=== PATIENT | male | born 1980 | race Caucasian/White ===

== ENCOUNTER 2019-02-27 11:23 | Inpatient (IN) ==
[~2019-02-27 11:23] MED LIST: ATIVAN IM ONE; BENADRYL IM ONE; GEODON IM ONE; STERILE WATER INJ. INJ ONE
[2019-02-27] MEDS ORDERED: NS 1,000 ML IV ONE ×2 (11:25)
[2019-02-27] MEDS ORDERED: GEODON ONE ×2 (11:33)
[2019-02-27] MEDS ORDERED: ATIVAN ONE ×2 (11:33)
[2019-02-27] MEDS ORDERED: BENADRYL ONE ×2 (11:33)
[2019-02-27] MEDS ORDERED: STERILE WATER INJ. ONE ×2 (11:34)
[2019-02-27] MEDS ORDERED: KETAMINE IM ONE (12:32)
--- NOTE | 2019-02-27 13:40 | Diag Imaging Result Doc PS360 ---
CHEST-PORTABLE - 02/27/2019 INDICATION: AMS COMPARISON: 02/19/2019 FINDINGS: There is significant patient motion artifact. The lungs are clear. Heart size is normal. No pneumothorax or pleural effusion. IMPRESSION: Negative exam. Electronically signed by Kiran Narvaez 02/27/2019 1:38 PM
[2019-02-27 13:58] LABS: URINE SOURCE CATH
[2019-02-27 14:01] LABS: BASO# 0.02 X1000 (0.0-0.2); BASO% 0.2 % (0.0-0.8); HEMATOCRIT 41.3 % (42.0-52.0); HEMOGLOBIN 13.8 g/dL (14.0-18.0); IMM GRAN# 0.02 X1000 (0.0-0.04); IMM GRAN% 0.2 % (0.0-0.5); LYMPH# 1.12 X1000 (1.2-3.4); LYMPH% 9.7 % (20.5-51.1); MCHC 33.4 g/dL (33-37); MCV 83.8 FL (81-99); MONO# 0.86 X1000 (0.11-0.59); MONO% 7.5 % (1.7-9.3); MPV 9.5 FL (7.4-10.4); NEUT# 9.52 X1000 (1.4-6.5); NEUT% 82.4 % (42.2-75.2); PLT 186 X1000 (130-400); RBC 4.93 XMIL (4.7-6.1); RDW 15.3 % (11.5-14.5); WBC 11.54 X1000 (4.8-10.8)
[2019-02-27 14:03] LABS: BILIRUBIN URINE NEGATIVE (NEGATIVE); BLOOD URINE TRACE (NEGATIVE); COLOR YELLOW; GLUCOSE URINE NEGATIVE (NEGATIVE); KETONE URINE 60 mg/dL (NEGATIVE); LEUKOCYTES URINE NEGATIVE (NEGATIVE); NITRITE URINE NEGATIVE (NEGATIVE); PROTEIN URINE 100 mg/dL (NEGATIVE); SP GRAVITY URINE 1.026; TURBIDITY URINE CLEAR (CLEAR); UR EPITHELIAL CELLS <10 /HPF (<10); URINE BACTERIA NEGATIVE /HPF; URINE RBC <10 /HPF (<10); URINE WBC 20-40 /HPF (<10); UROBILINOGEN URINE NORMAL (NORMAL)
[2019-02-27 14:15] LABS: UR AMPHETAMINES QUAL PRESUMPTIVE POSITIVE (NONE DETECT); UR BARBITUATES QUAL NONE DETECTED (NONE DETECT); UR BENZODIAZEPIN QUAL NONE DETECTED (NONE DETECT); UR CANNABINOIDS QUAL NONE DETECTED (NONE DETECT); UR COCAINE QUAL NONE DETECTED (NONE DETECT); UR METHADONE QUAL NONE DETECTED (NONE DETECT); UR OPIATES QUAL PRESUMPTIVE POSITIVE (NONE DETECT); UR OXYCODONE QUAL NONE DETECTED (NONE DETECT); UR PCP QUAL NONE DETECTED (NONE DETECT)
[2019-02-27 14:17] LABS: ESTIMATED GFR > 60
[2019-02-27 14:18] LABS: ACETAMINOPHEN < 1.2 ug/mL (10-30); AGAP 23; ALB/GLOB RATIO 1.8; ALBUMIN 4.9 g/dL (3.5-5.0); ALKALINE PHOSPHATASE 108 U/L (32-122); BUN 23 mg/dL (8-22); CALCIUM 9.2 mg/dL (8.8-10.2); CHLORIDE 98 mmol/L (98-107); CK TOTAL 1575 U/L (24-204); COSMO 287; CREATININE 1.1 mg/dL (0.7-1.2); GLUCOSE 69 mg/dL (70-104); GOT 78 U/L (10-34); GPT 36 U/L (10-44); POTASSIUM 4.6 mmol/L (3.5-5.1); SALICYLATES < 3.00 mg/dL (3-10); SODIUM 143 mmol/L (136-145); TCO2 22 mmol/L (25-35); TOTAL BILIRUBIN 0.88 mg/dL (0.20-1.00); TOTAL PROTEIN 7.6 g/dL (6.3-8.3)
[2019-02-27] MEDS ORDERED: ATIVAN IV ONE (14:29)
[2019-02-27] MEDS ORDERED: D50W SYRINGE IV ONE (14:30)
[2019-02-27] MEDS ORDERED: KETAMINE IV ONE (14:30)
--- NOTE | 2019-02-27 14:37 | PROVIDER DOCUMENTATION ---
This chart was entered by Lesli Coles Scribe, acting as scribe for Zhang Valdez MD. [id number] Abuse/Overdose - General Chief Complaint: Intoxicated Stated Complaint: intox Time Seen by Provider: 02/27/19 11:23 Source: patient, EMS (first response) Unable to obtain history due to:: altered Allergies/Adverse Reactions: Allergies Allergy/AdvReac Type Severity Reaction Status Date / Time divalproex sodium Allergy ANAPHYLAXIS Verified 12/08/18 16:46 [From Depakote] Home Medications: Home Medication List Medication Instructions Recorded Confirmed Last Taken Type Omeprazole 20 mg PO DAILY 09/11/18 10/13/18 09/10/18 07:00 History Amphetamine Salts [Adderall] 20 mg PO TID@0700,1200,1600 10/13/18 10/13/18 Unknown History Clonazepam 0.5 mg PO DAILY #3 tab 12/08/18 Unknown Rx Clonazepam [Klonopin] 0.5 mg PO BID PRN PRN #5 tab 02/19/19 Unknown Rx Ketorolac [Toradol] 10 mg PO Q6H PRN PRN #20 tab 02/19/19 Unknown Rx Hydroxyzine [Atarax] 25 mg PO TID PRN #15 tab 02/25/19 Unknown Rx - History of Present Illness-Drug/Alcohol Nature of Presenting Problem: 38 yowm presents to the ed via ems (first response) with etoh abuse and is known to take drugs. pt was given Ketomine by ems due to aggression and combative to help calm to bring to ed per dr valdez order. . pt when arrives in ed is still in the same state and is noncompliant with staff. pt has fresh track paola in rt forearm and has multiple bruises over extremities. pt has been in the ed on 02/19/19 and 02/25/19 wioth similar complaints and anxiety. pt smells strongly of etoh on exam. pt will not admit what drug he has taken except he took a bar of Xanax this am This episode of drinking or use began:: this morning Severity: reports: severe Situational problems related to:: reports: parent Psychiatric Complaints: reports: angry, agitated, altered mental status, frustrated, hostile, irritability, rapid pulse, restlessness Associated Symptoms: reports: anxiety. denies: chest pain, nausea, shortness of breath, vomiting Any injuries associated with this episode of intoxication?: No (no new injuries were seen on limited exam) Similar Symptoms Previously?: Yes Recently seen or treated by another doctor?: Yes (seen in ed 02/19/19 and 02/25/19) - Substance Abuse Substance Use: reports: alcohol, benzodiazepines - Alcohol Abuse Usually drinks:: binge Review of Systems - Adult - REVIEW OF SYSTEMS - ADULT ROS:: limited per condition Constitutional: reports: no symptoms reported Eyes: reports: no symptoms reported Ears, Nose, Mouth & Throat: reports: no symptoms reported Cardiovascular: denies: chest pain, syncope Respiratory: reports: no symptoms reported Gastrointestinal: denies: diarrhea, vomiting Genitourinary: reports: no symptoms reported Musculoskeletal: reports: no symptoms reported Integumentary: reports: no symptoms reported Neurological: reports: see HPI. denies: slurred speech Psychiatric: reports: see HPI, anxiety, alcohol/drug dependence, panic attacks Endocrine: reports: no symptoms reported Hematologic/Lymphatic: reports: no symptoms reported Allergic/Immunologic: reports: no symptoms reported All Other Systems: Reviewed and Negative Past History - Adult - PAST MEDICAL HISTORY-ADULT Review of Records: reports: Old Records Reviewed, Nursing Assessment Review, Medications Reviewed, Social history reviewed & non-contributory. Major Childhood Illnesses: reports: denies history Cardiovascular: reports: denies history Respiratory: reports: denies history Gastrointestinal: reports: ulcer Genitourinary: reports: denies history Musculoskeletal: reports: denies history Neurological: reports: denies history Psychiatric: reports: anxiety, depression, psychiatric problems Endocrine/Immune: reports: denies history Other Conditions: reports: denies history - PRIOR SURGERIES/PROCEDURES Surgical/Procedure History: reports: reviewed, not pertinent - IMMUNIZATION STATUS Childhood Immunizations: See Nurse Assessment Flu Vaccine: See Nurse Assessment - FAMILY HISTORY Family History: reviewed, not pertinent - SOCIAL HISTORY Smoking: quit less than 1 year Substance Use: alcohol (whenever he can get it), benzodiazepines, other (meth use) Living Situation: family Physical Exam-General - PHYSICAL EXAM-ADULT Exam Limited by: pt in noncompliant and combative, AMS with medic and staff at ed Initial Vital Signs Reviewed: Yes - CONSTITUTIONAL General Appearance: alert, severe distress (pt is combative and screaming), other (pt smells strongly of ETOH on exam) - EYES Eyes: other (pupils dialted 9-10mm) - HEAD, EARS, NOSE, MOUTH & THROAT HENMT: moist mucous membranes - NECK Neck: non-tender, full range of motion - RESPIRATORY Respiratory: chest non-tender, no respiratory distress, increased rate (24) - CARDIOVASCULAR Cardiovascular: tachycardia (141) - GASTROINTESTINAL (ABDOMEN) Abdominal Exam: soft - GENITOURINARY Male Genitalia: deferred Rectal Exam: deferred Hemoccult Exam: deferred - LYMPHATIC Lymphatic: no adenopathy - MUSCULOSKELETAL Extremity: other (multiple areas of bruising noted to BUE and bLE and on rt forearm pt has fresh track paola in bruised area/pt is moving BUE and BLE without difficulty) - SKIN Integumentary: normal color, warm/dry, abrasion(s) (left hip), ecchymosis (BUE and BLE) - NEUROLOGIC Neurologic: grossly normal - PSYCHIATRIC Psych/Mental Status: anxious, disheveled, other (pt is screaming and combative) Progress - PLAN OF CARE/RESULTS Progress/Plan/Lab Results: Vital Signs - 8 hr 02/27/19 11:50 02/27/19 11:51 02/27/19 12:00 Temperature Pulse Rate 141 H Respiratory Rate 24 Blood Pressure 131/78 131/78 O2 Sat by Pulse Oximetry 98 98 94 L 02/27/19 13:30 02/27/19 14:01 Temperature 98.4 F Pulse Rate 113 H Respiratory Rate 18 Blood Pressure 116/89 O2 Sat by Pulse Oximetry 97 96 Laboratory Results - last 24 hr 02/27/19 02/27/19 02/27/19 13:50 13:50 13:50 WBC 11.54 H RBC 4.93 Hgb 13.8 L Hct 41.3 L MCV 83.8 MCH 28.0 MCHC 33.4 RDW Std Deviation 15.3 H Plt Count 186 MPV 9.5 Immature Gran % (Auto) 0.2 Neut % (Auto) 82.4 H Lymph % (Auto) 9.7 L [place] % (Auto) 7.5 Eos % (Auto) 0.0 Baso % (Auto) 0.2 Immature Gran # (Auto) 0.02 Neut # (Auto) 9.52 H Lymph # (Auto) 1.12 L [place] # (Auto) 0.86 H Eos # (Auto) 0.00 Baso # (Auto) 0.02 Sodium 143 Potassium 4.6 Chloride 98 Carbon Dioxide 22 L Anion Gap 23 BUN 23 H Creatinine 1.1 Estimated GFR/1.73 m2 > 60 BUN/Creatinine Ratio 21 Glucose 69 L Calculated Osmolality 287 Calcium 9.2 Total Bilirubin 0.88 AST 78 H ALT 36 Alkaline Phosphatase 108 Creatine Kinase 1575 H Total Protein 7.6 Albumin 4.9 Globulin 2.7 Albumin/Globulin Ratio 1.8 Urine Source Urine Color Urine Turbidity Urine pH Ur Specific Blue Urine Protein Ur Glucose (Stick) Ur Ketones (Stick) Urine Blood Urine Nitrite Urine Bilirubin Urobilinogen Dipstick Urine Leukocytes Urine WBC (Auto) Urine RBC (Auto) U Epithel Cells (Auto) Urine Bacteria (Auto) Salicylates < 3.00 L Urine Opiates Screen Ur Oxycodone Screen Ur Methadone, Qual Acetaminophen < 1.2 L Ur Barbiturates Screen Ur Phencyclidine Scrn Ur Amphetamines Screen U Benzodiazepines Scrn Urine Cocaine Screen U Cannabinoids Screen Plasma/Serum Ethyl Alc 02/27/19 02/27/19 13:50 13:50 WBC RBC Hgb Hct MCV MCH MCHC RDW Std Deviation Plt Count MPV Immature Gran % (Auto) Neut % (Auto) Lymph % (Auto) [place] % (Auto) Eos % (Auto) Baso % (Auto) Immature Gran # (Auto) Neut # (Auto) Lymph # (Auto) [place] # (Auto) Eos # (Auto) Baso # (Auto) Sodium Potassium Chloride Carbon Dioxide Anion Gap BUN Creatinine Estimated GFR/1.73 m2 BUN/Creatinine Ratio Glucose Calculated Osmolality Calcium Total Bilirubin AST ALT Alkaline Phosphatase Creatine Kinase Total Protein Albumin Globulin Albumin/Globulin Ratio Urine Source CATH Urine Color YELLOW Urine Turbidity CLEAR Urine pH 6.0 Ur Specific Blue 1.026 Urine Protein 100 A Ur Glucose (Stick) NEGATIVE Ur Ketones (Stick) 60 A Urine Blood TRACE A Urine Nitrite NEGATIVE Urine Bilirubin NEGATIVE Urobilinogen Dipstick NORMAL Urine Leukocytes NEGATIVE Urine WBC (Auto) 20-40 A Urine RBC (Auto) <10 U Epithel Cells (Auto) <10 Urine Bacteria (Auto) NEGATIVE Salicylates Urine Opiates Screen PRESUMPTIVE POSITIVE A Ur Oxycodone Screen NONE DETECTED Ur Methadone, Qual NONE DETECTED Acetaminophen Ur Barbiturates Screen NONE DETECTED Ur Phencyclidine Scrn NONE DETECTED Ur Amphetamines Screen PRESUMPTIVE POSITIVE A U Benzodiazepines Scrn NONE DETECTED Urine Cocaine Screen NONE DETECTED U Cannabinoids Screen NONE DETECTED Plasma/Serum Ethyl Alc Orders Category Date Time Status Cardiac Monitoring DIRECTED Care 02/27/19 11:24 Active Finger Stick Blood Sugar (ED) DIRECTED Care 02/27/19 11:24 Active Gary Cath Insertion ORDERED Care 02/27/19 13:53 Active Restraint Initiate NonViolent NOW Care 02/27/19 11:27 Active CHEST-PORTABLE [RAD] Stat Exams 02/27/19 11:[address] HEAD W/O CONTRAST [CT] Stat Exams 02/27/19 11:26 Ordered ABG [RESP] Routine Lab 02/27/19 11:27 Ordered ACETAMINOPHEN [TDM] Stat Lab 02/27/19 13:50 Completed ALCOHOL BLOOD Stat Lab 02/27/19 13:50 Completed CBC WITH ELECTRONIC DIFF [HEME] Stat Lab 02/27/19 13:50 Completed CK TOTAL [CHEM] Stat Lab 02/27/19 13:50 Completed COMPREHENSIVE METABOLIC PANEL [CHEM] Stat Lab 02/27/19 13:50 Completed SALICYLATES [TDM] Stat Lab 02/27/19 13:50 Completed URINALYSIS [URINALYSIS] Stat Lab 02/27/19 13:50 Completed URINE DRUG SCREEN Stat Lab 02/27/19 13:50 Completed 0.9% Sodium Chloride Inj [Ns] 1,000 ml Med 02/27/19 11:25 Discontinued IV 999 mls/hr 0.9% Sodium Chloride Inj [Ns] 1,000 ml Med 02/27/19 11:25 Discontinued IV 999 mls/hr Dextrose 50% Syringe [D50w Syringe] Med 02/27/19 14:30 Discontinued 50 ml IV NOW ONE Diphenhydramine [Benadryl] Med 02/27/19 11:23 Discontinued 50 mg IM NOW ONE Ketamine Med 02/27/19 14:30 Discontinued 100 mg IV NOW ONE Ketamine Med 02/27/19 12:32 Discontinued 350 mg IM NOW ONE Lorazepam [Ativan] Med 02/27/19 11:23 Discontinued 2 mg IM NOW ONE Lorazepam [Ativan] Med 02/27/19 14:29 Discontinued 2 mg IV NOW ONE Water, Sterile Inj [Sterile Water Inj.] Med 02/27/19 11:23 Discontinued 1.2 ml INJ NOW ONE Ziprasidone [Geodon] Med 02/27/19 11:23 Discontinued 20 mg IM NOW ONE Overdose (suspected) Stat Oth 02/27/19 11:24 Ordered EKG [EKG] Stat Ther 02/27/19 11:[address] valdez spoke with medic x2 in length on phone prior to pt arriving into the ed about pt being combative and medication needs Result Diagrams: 02/27/19 13:50 02/27/19 13:50 - REASSESSMENT Reassessment #1 Time Reassessed: 13:02 Status: unchanged Reassessment #2 Time Reassessed: 14:32 Status: unchanged Reassessment #3 Time Reassessed: 14:33 Status: unchanged (Patient continue to be combative, tachycardic. Likely is having a combination of BZD withdrawal and methamphetamine OD. Will give additional sedating ketamine and ativan and IVF. Patient given D50 for hypoglycemia. Will need ICU care.) - EKG 1 Time of EKG reading by physician:: 14:05 EKG Read and Signed by:: Zhang Valdez EKG Interpretation (*Must complete 3 of following elements*): Abnormal Rate: 121 Rhythm: sinus tachycardia [place]: normal QRS: normal, other (high voltage) SC Interval: normal ST Wave: normal Comments: artifact present/nonspecific T wave abnormality - XRAY 1 XRAY Study: Chest Impression: Normal, See EMR Report ( CHEST-PORTABLE - 02/27/2019 INDICATION: AMS COMPARISON: 02/19/2019 FINDINGS: There is significant patient motion artifact. The lungs are clear. Heart size is normal. No pneumothorax or pleural effusion. IMPRESSION: Negative exam. Electronically signed by Kiran Narvaez 02/27/2019 1:38 PM 02/27/19 1338 Interpreting Physician: Kiran Narvaez MD Dictated Date/Time: 02/27/19 1337 cc: Zhang Valdez MD; None,PCP) - CT/MRI 1 CT Study: Head Impression: See EMR Report - CONSULTS/PCP/HOSPITALIST Notification #1 *Consult/PCP/Hospitalist*: hospitalist Time Discussed: 14:32 (spoke with azam) Consult Disposition: Admit Departure - Departure Date of Disposition Decision: 02/27/19 Time of Disposition Decision: 14:35 DIAGNOSIS: Methamphetamine abuse, episodic, Hypoglycemia, Agitation requiring sedation protocol Benzodiazepine withdrawal Qualifiers: Complication of substance-induced condition: with delirium Qualified Code(s): F13.231 - Sedative, 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 Attestation - Physician/ MADHAVI Attestation Patient care was provided by Advanced Practice Provider:: No The physician spent face to face time with patient:: Yes Advanced Practice Provider documentation review:: Supervising physician onsite and consulted in the evaluation and care of this patient. The physician did have a face to face encounter with the patient. This chart was documented by the indicated scribe, (Lesli Coles Scribe) and accurately reflects the services I performed and decisions made by me, Zhang Valdez MD, as attested by the provider's signature.
[2019-02-27] MEDS ORDERED: BENTYL PO PRN (14:39)
[2019-02-27] MEDS ORDERED: ATARAX PO PRN (14:39)
[2019-02-27] MEDS ORDERED: ROBAXIN PO PRN (14:39)
[2019-02-27] MEDS ORDERED: M.V.I.-12 10 ML, FOLIC ACID 1 MG, MAGNESIUM SULFATE 1 GM, THIAMINE 100 MG in NS 1,000 ML IV ONE (14:39)
[2019-02-27] MEDS ORDERED: GEODON IM ONE (14:40)
[2019-02-27] MEDS ORDERED: PHENOBARBITAL IV ONE (14:40)
[2019-02-27] MEDS ORDERED: STERILE WATER INJ. INJ ONE (14:40)
[2019-02-27] MEDS ORDERED: LIBRIUM PO SCH (14:45)
[2019-02-27] MEDS ORDERED: ZOFRAN IV PRN (15:12)
[2019-02-27] MEDS ORDERED: TYLENOL PO PRN (15:12)
[2019-02-27] MEDS: ATIVAN 20 MG in NS 190 ML IV SCH (15:20)
--- NOTE | 2019-02-27 15:31 | EKG Report ---
Test Performed on : 02/27/2019 2:05:01 PM Test Reason : INTOXICATED Blood Pressure : / mmHG Vent. Rate : 121 BPM Atrial Rate : 121 BPM P-R Int : 124 ms QRS Dur : 084 ms QT Int : 314 ms P-R-T Axes : 067 079 -24 degrees QTc Int : 445 ms Sinus tachycardia. Nonspecific T wave abnormality Abnormal ECG When compared with ECG of 25-FEB-2019 09:53, (Unconfirmed) Nonspecific T wave abnormality now evident in Inferior leads Nonspecific T wave abnormality now evident in Anterior leads Unconfirmed Result
[2019-02-27] MEDS ORDERED: VANCOMYCIN IV PER PHARMACY MISC SCH (16:30)
[2019-02-27] MEDS ORDERED: VANCOMYCIN 2,200 MG in NS 500 ML IV ONE (17:00)
[2019-02-27] MEDS ORDERED: D50W SYRINGE IV PRN (18:05)
[2019-02-27] MEDS: D50W SYRINGE IV PRN (18:26)
[2019-02-27] MEDS: NS 1,000 ML IV SCH ×2 (19:56→22:42)
[2019-02-27] MEDS: UNASYN 3 GM/NS 3 GM/100 ML IVPB IV SCH ×2 (19:56→22:40)
[2019-02-27 20:01] LABS: ALLEN TEST YES; BE -1.5 mmoll (-3.0-3.0); BLOOD TYPE ARTERIAL; HCO3-(ACT) 23.7 mmoll (20.0-26.0); O2HB 94.6 % (95.0-99.0); PCO2(98.6) 44 mmHg (35-45); PO2(98.6) 80 mmHg (60-100); SAMPLE BLOOD; SAO2 97.5 % (95.0-100.0); pH(98.6) 7.35 (7.35-7.45)
[2019-02-27 20:03] LABS: MODALITY ROOM AIR
--- NOTE | 2019-02-27 21:26 | Diag Imaging Result Doc PS360 ---
CT HEAD W/O CONTRAST - 02/27/2019 INDICATION: AMS COMPARISON: None FINDINGS: The ventricles and sulci are normal in size and contour. No intracranial mass or hemorrhage. The skull is intact. The sinuses mastoids and middle ears are clear. IMPRESSION: Negative exam. This exam was performed using automated exposure control, adjustment of mA or kV according to patient size, and/or use of iterative reconstruction technique Electronically signed by Kiran Narvaez 02/27/2019 9:24 PM
[2019-02-27] MEDS ORDERED: GEODON IM PRN (22:29)
[2019-02-28] MEDS: PHENOBARBITAL IV PRN ×4 (00:40→23:55)
[2019-02-28] MEDS: D50W SYRINGE IV PRN ×3 (00:47→09:08)
--- NOTE | 2019-02-28 03:29 | HISTORY AND PHYSICAL ---
PRIMARY CARE PROVIDER: None. CHIEF COMPLAINT: Altered mental status. HISTORY OF PRESENT ILLNESS: Mr. Ruddy Lopez is a 38-year-old male with a medical history of schizophrenia, bipolar disorder, anxiety, depression, IV drug abuse, benzodiazepine abuse, who was brought in by EMS or 1st response. He has a history of alcohol abuse, is known to take all these drugs, but he was extremely agitated and aggressive, very combative, has been given multiple products to get him sedated, which have been unsuccessful. He has now been restrained and he will be moved to the ICU. He is going to be put on Ativan drip. The nurse at the bedside stated that they were told he had taken 2 Xanax bars prior to coming in as well. It is also noted that he was in yesterday with complaints of anxiety, requesting Xanax at that time, but he was not given Xanax. It is also reported that he uses crystal meth and he was positive for crystal meth in his urine drug screen. He has got track rodriguez on his arms. His right forearm has an area that appears to be infected with the right hand being swollen, red and hot. PAST MEDICAL HISTORY: 1. Anxiety. 2. Depression. 3. Schizophrenia. 4. ADD and ADHD. 5. Bipolar disorder. 6. Alcohol abuse. 7. IV drug abuse. 8. Tobacco abuse. 9. Stimulant abuse. 10. Medication noncompliance. SURGICAL HISTORY: Unable to obtain. SOCIAL HISTORY: Lives with his parents. He smokes. There is reported alcohol abuse but unable to get that detailed information from him. There is reports of benzodiazepines abuse, methamphetamine abuse. FAMILY HISTORY: Mother depression. Father, substance abuse. Maternal family members, several with schizophrenia. ALLERGIES: Depakote. DISCHARGE DISPOSITION: Home medications unable to obtain. REVIEW OF SYSTEMS: He is essentially just too confused to give any detail about how he feels or what symptoms he is having. PHYSICAL EXAMINATION: VITAL SIGNS: Temperature 98.4 degrees, heart rate 107, respiratory rate 18, blood pressure 141/82, O2 saturation 95% on room air. GENERAL: Ruddy Lopez is a 38-year-old male. He is extremely agitated to the point of having to be restrained, as he can be aggressive; but, currently is pleasant and is still extremely confused, pulling and tugging at wires and IV tubing. HEENT: Atraumatic, normocephalic. Pupils equal, reactive. Extraocular movements intact. Mucous membranes are moist. NECK: Trachea midline. CARDIOVASCULAR: S1, S2. Tachycardic rate and rhythm. No rubs, gallops, or murmurs. No lower extremity edema. +2 dorsalis and radial pulses. Negative JVD or carotid bruits. PULMONARY: Clear to auscultate bilateral breath sounds. No accessory muscle use or work of breathing noted. GASTROINTESTINAL: Soft, nontender, nondistended. Positive bowel sounds x4. EXTREMITIES: Moves all extremities equally. Full range of motion. NEUROLOGIC: Oriented to name only. Otherwise, agitated and confused. SKIN: Warm, dry, intact except for right forearm. There is swelling and ecchymosis around the right forearm; the right hand is red and swollen as well. LABORATORY DATA: White blood cells 11,000, hemoglobin 13, hematocrit 41, platelet count 186,000. Sodium 143, potassium 4.6, BUN 23, creatinine is 1.1. Glucose 69, calcium 9.2, bilirubin 0.88, AST 78, ALT 36, CK 1575, albumin 4.9. Urinalysis 100 protein, 60 ketones, trace blood, 20 to 40 white blood cells, no bacteria. Urine drug screen positive for opiates and amphetamines. Salicylates less than 3. Acetaminophen less than 1.2. Alcohol zero. IMAGING: Chest x-ray negative exam. EKG sinus tachycardia, rate 121. ASSESSMENT/PLAN: 1. Toxic encephalopathy secondary to drug abuse, possibly benzodiazepine withdrawals. He is going to bed at [facility]. He is currently restrained and still agitated despite multiple products to help sedate him or make him comfortable. He will be monitored in the ICU. 2. Right forearm possible cellulitis secondary to IV drug use and track rodriguez locally in the right forearm area, where there is bruising. He has got leukocytosis, so we are going to go ahead and start him on IV Unasyn and vancomycin. We will wait for the blood cultures. 3. Intravenous drug abuse and it also appears as if he has got cellulitis in the right forearm. We are going to ultrasound that forearm, but we may also need to get an echocardiogram to rule out any vegetation on the valve. He is too agitated for that right now. Also, too agitated for the head CT. 4. Rhabdomyolysis. He is on IV fluid hydration. 5. Hypoglycemia. We will do q.4 hour. blood sugar checks and give him glucose or dextrose if blood glucose levels are less than 100. 6. Reported alcohol abuse. He is on Ativan drip. 7. Tobacco abuse. Cessation will be discussed when he is more alert. 8. Deep venous thrombosis prophylaxis. Sequential compression devises. Dictated by LAINEY Parker for Kenneth Thurston MD cc: LAINEY Parker MD Pt has hx methamphetamine use and benzo dependence; presents altered and belligerent; he has forearm cellulitis on exam; will admit to help control encephalopathy/intoxication; plan for icu admission as he is still agitated in 4 point restraints MTDD
[2019-02-28] MEDS: UNASYN 3 GM/NS 3 GM/100 ML IVPB IV SCH ×4 (04:18→22:12)
[2019-02-28] MEDS: NS 1,000 ML IV SCH ×3 (04:20→12:05)
[2019-02-28] MEDS: VANCOMYCIN 1,800 MG in NS 250 ML IV SCH ×2 (05:11→18:13)
[2019-02-28 06:27] LABS: BASO# 0.02 X1000 (0.0-0.2); BASO% 0.4 % (0.0-0.8); EOS# 0.04 X1000 (0.0-0.7); EOS% 0.9 % (0.0-10.0); HEMATOCRIT 34.3 % (42.0-52.0); HEMOGLOBIN 11.2 g/dL (14.0-18.0); LYMPH# 0.72 X1000 (1.2-3.4); LYMPH% 16.1 % (20.5-51.1); MCH 28.6 PG (27-31); MCHC 32.7 g/dL (33-37); MCV 87.5 FL (81-99); MONO# 0.35 X1000 (0.11-0.59); MONO% 7.8 % (1.7-9.3); MPV 9.7 FL (7.4-10.4); NEUT# 3.34 X1000 (1.4-6.5); NEUT% 74.8 % (42.2-75.2); PLT 120 X1000 (130-400); RBC 3.92 XMIL (4.7-6.1); RDW 15.4 % (11.5-14.5); WBC 4.47 X1000 (4.8-10.8)
[2019-02-28 06:54] LABS: AGAP 14; ALB/GLOB RATIO 1.4; ALBUMIN 3.3 g/dL (3.5-5.0); ALKALINE PHOSPHATASE 79 U/L (32-122); BUN 12 mg/dL (8-22); CALCIUM 7.8 mg/dL (8.8-10.2); CHLORIDE 107 mmol/L (98-107); COSMO 281; CREATININE 0.7 mg/dL (0.7-1.2); ESTIMATED GFR > 60; GLUCOSE 68 mg/dL (70-104); GOT 84 U/L (10-34); GPT 28 U/L (10-44); MAGNESIUM 2.2 mg/dL (1.5-2.7); POTASSIUM 3.9 mmol/L (3.5-5.1); SODIUM 142 mmol/L (136-145); TCO2 21 mmol/L (25-35); TOTAL BILIRUBIN 0.91 mg/dL (0.20-1.00); TOTAL PROTEIN 5.6 g/dL (6.3-8.3)
[2019-02-28 07:09] LABS: CK TOTAL 3344 U/L (24-204)
[2019-02-28] MEDS: ATIVAN 20 MG in NS 190 ML IV SCH (13:31)
[2019-02-28] MEDS: SODIUM BICARBONATE 8.4% 150 MEQ in D5W 1,000 ML IV SCH (14:16)
[2019-02-28] MEDS: FOLIC ACID IV SCH (14:30)
[2019-02-28] MEDS: D5W IV SCH (14:30)
[2019-02-28] MEDS: STERILE WATER INJ. INJ PRN (14:30)
[2019-02-28] MEDS: GEODON IM PRN (14:30)
[2019-02-28] MEDS: THIAMINE IV SCH (14:30)
[2019-02-28] MEDS: M V I IV SCH (14:30)
--- NOTE | 2019-02-28 21:19 | PROGRESS NOTE ---
DATE: 02/28/2019 SUBJECTIVE: Patient is still very confused, agitated, disoriented. When he comes to, he is belligerent. OBJECTIVE: Vital signs: Blood pressure 117/77, heart rate of 103, respiratory rate of 21, temperature 98 degrees, 97% on room air. Cardiovascular: Regular rate and rhythm. Pulmonary: Bilateral breath sounds clear to auscultation. Gastrointestinal: Soft, nontender, nondistended. Bowel sounds are positive. LABORATORY DATA: White count 4.4, H and H 11 and 34, platelets of 120,000. Creatinine is 0.7, BUN is 21, glucose is 68. CPK is up to 3344. PROBLEM LIST: 1. Acute encephalopathy due to drug intoxication compounded with possible withdrawal. He is still very confused. We have him on multiple sedating agents, which includes phenobarbital, Ativan. We are still struggling to keep him somewhat sedated. 2. Polysubstance abuse, aware. He was positive for amphetamines. 3. Cellulitis. He is on vancomycin and Unasyn. We will continue to monitor. 4. Thrombocytopenia. We also need to monitor that closely. Not sure if that is related to other issues going on. 5. Rhabdomyolysis. We will start a bicarbonate infusion and follow his CK levels. cc: Kenneth Thurston MD
[2019-03-01] MEDS: SODIUM BICARBONATE 8.4% 150 MEQ in D5W 1,000 ML IV SCH (04:27)
[2019-03-01] MEDS: UNASYN 3 GM/NS 3 GM/100 ML IVPB IV SCH ×4 (04:27→22:13)
[2019-03-01] MEDS: STERILE WATER INJ. INJ PRN ×4 (04:52→21:53)
[2019-03-01] MEDS: GEODON IM PRN ×4 (04:52→21:53)
[2019-03-01 06:11] LABS: BASO# 0.01 X1000 (0.0-0.2); BASO% 0.2 % (0.0-0.8); EOS# 0.06 X1000 (0.0-0.7); HEMATOCRIT 34.9 % (42.0-52.0); HEMOGLOBIN 11.1 g/dL (14.0-18.0); LYMPH# 1.03 X1000 (1.2-3.4); LYMPH% 17.7 % (20.5-51.1); MCH 27.7 PG (27-31); MCHC 31.8 g/dL (33-37); MONO# 0.42 X1000 (0.11-0.59); MONO% 7.2 % (1.7-9.3); MPV 9.5 FL (7.4-10.4); NEUT# 4.31 X1000 (1.4-6.5); NEUT% 73.9 % (42.2-75.2); PLT 136 X1000 (130-400); RBC 4.01 XMIL (4.7-6.1); RDW 14.9 % (11.5-14.5); WBC 5.83 X1000 (4.8-10.8)
[2019-03-01 07:10] LABS: AGAP 16; ALBUMIN 2.8 g/dL (3.5-5.0); ALKALINE PHOSPHATASE 77 U/L (32-122); BUN 2 mg/dL (8-22); CALCIUM 8.1 mg/dL (8.8-10.2); CHLORIDE 96 mmol/L (98-107); CK TOTAL 1690 U/L (24-204); COSMO 266; CREATININE 0.6 mg/dL (0.7-1.2); ESTIMATED GFR > 60; GLUCOSE 125 mg/dL (70-104); GOT 63 U/L (10-34); GPT 25 U/L (10-44); MAGNESIUM 1.8 mg/dL (1.5-2.7); SODIUM 134 mmol/L (136-145); TCO2 22 mmol/L (25-35); TOTAL BILIRUBIN 0.52 mg/dL (0.20-1.00); TOTAL PROTEIN 5.7 g/dL (6.3-8.3)
[2019-03-01] MEDS: VANCOMYCIN 2,000 MG in NS 500 ML IV SCH ×2 (09:25→19:50)
[2019-03-01] MEDS: M V I IV SCH (14:31)
[2019-03-01] MEDS: D5W IV SCH (14:31)
[2019-03-01] MEDS: THIAMINE IV SCH (14:31)
[2019-03-01] MEDS: FOLIC ACID IV SCH (14:31)
[2019-03-01] MEDS: GEODON PO SCH (19:59)
[2019-03-01] MEDS: INDERAL PO SCH (19:59)
[2019-03-01] MEDS: PHENOBARBITAL IV PRN (20:19)
--- NOTE | 2019-03-01 20:33 | PROGRESS NOTE ---
DATE: 03/01/2019 INTERVAL HISTORY: No acute events overnight. The patient ate a little bit of Jell-O in the morning time. He is still confused and he is in bilateral wrist restraints. He is not able to communicate and answer questions appropriately. He appears confused. Intermittently he mumbles incomprehensibly. OBJECTIVE: Vital signs: Temperature 98.6 degrees, pulse 91, respiratory 19, blood pressure 130/80. He is saturating 95% on room air. On physical examination, oral cavity has a pool of saliva. Pupils are bilaterally equal, reacting to light. Air entry bilaterally equal. No wheeze, rhonchi or crackles.Cardiovascular: S1, S2 normal. Not tachycardic. No murmur, rub or gallop. Abdomen is soft, nontender. He has a urine catheter. No lower extremity edema. He has mild bilateral upper extremity edema, without significant cellulitic changes today. Input and output since presentation: He is positive 2.8 L. LABORATORY DATA: Labs suggestive of no leukocytosis, normocytic anemia, normal platelet count, hyponatremia, hypochloremia, hypokalemia. Microbiology: Blood culture, no positive data. DIAGNOSTIC DATA: No new imaging. ASSESSMENT AND PLAN: 1. Acute encephalopathy due to use of recreational substances including benzodiazepine, amphetamine. The detailed history is not clear at the moment. Considering his significant agitation, I will keep him on intravenous lorazepam drip and I will consider starting him on oral medications as tolerated. 2. Suspected right forearm possible cellulitis secondary to intravenous drug use and track rodriguez, now appears to be improving. His blood culture has not shown any growth. I will keep him on intravenous vancomycin and Unasyn. 3. Polysubstance abuse. He may be currently experiencing toxicity versus withdrawal of those substances. Apart from the lorazepam drip, I will continue him on as-needed phenobarbital and ziprasidone. 4. Disposition: I will monitor him in intensive care unit for the need for intravenous lorazepam drip. His condition is still critical. I will keep his family informed. Plan of care discussed with nursing team. cc: Balwinder Butler MD
[2019-03-01] MEDS: NICODERM PATCH TD SCH (22:13)
[2019-03-01] MEDS: ATIVAN 20 MG in NS 190 ML IV SCH (23:13)
[2019-03-02] MEDS: PHENOBARBITAL IV PRN ×4 (02:35→22:00)
[2019-03-02] MEDS: UNASYN 3 GM/NS 3 GM/100 ML IVPB IV SCH ×4 (04:12→22:00)
[2019-03-02] MEDS: SODIUM BICARBONATE 8.4% 150 MEQ in D5W 1,000 ML IV SCH (04:47)
[2019-03-02 05:30] LABS: BASO# 0.01 X1000 (0.0-0.2); BASO% 0.2 % (0.0-0.8); EOS# 0.08 X1000 (0.0-0.7); EOS% 1.9 % (0.0-10.0); HEMATOCRIT 37.4 % (42.0-52.0); HEMOGLOBIN 11.9 g/dL (14.0-18.0); LYMPH# 1.13 X1000 (1.2-3.4); LYMPH% 26.8 % (20.5-51.1); MCH 27.8 PG (27-31); MCHC 31.8 g/dL (33-37); MCV 87.4 FL (81-99); MONO# 0.48 X1000 (0.11-0.59); MONO% 11.4 % (1.7-9.3); MPV 9.7 FL (7.4-10.4); NEUT# 2.52 X1000 (1.4-6.5); NEUT% 59.7 % (42.2-75.2); PLT 156 X1000 (130-400); RBC 4.28 XMIL (4.7-6.1); WBC 4.22 X1000 (4.8-10.8)
[2019-03-02] MEDS: GEODON IM PRN ×2 (05:44→18:01)
[2019-03-02] MEDS: STERILE WATER INJ. INJ PRN ×2 (05:44→18:02)
[2019-03-02 06:31] LABS: AGAP 11; ALKALINE PHOSPHATASE 78 U/L (32-122); BUN 2 mg/dL (8-22); CALCIUM 8.5 mg/dL (8.8-10.2); CHLORIDE 101 mmol/L (98-107); CK TOTAL 894 U/L (24-204); COSMO 272; CREATININE 0.5 mg/dL (0.7-1.2); ESTIMATED GFR > 60; GLUCOSE 99 mg/dL (70-104); GOT 45 U/L (10-34); GPT 25 U/L (10-44); POTASSIUM 3.5 mmol/L (3.5-5.1); SODIUM 138 mmol/L (136-145); TCO2 26 mmol/L (25-35); TOTAL BILIRUBIN 0.32 mg/dL (0.20-1.00); TOTAL PROTEIN 5.9 g/dL (6.3-8.3)
--- NOTE | 2019-03-02 06:37 | EKG Report ---
Test Performed on : 03/02/2019 06:06:01 AM Test Reason : QTc follow up. Lexie HUERTA if QTc >500 Blood Pressure : / mmHG Vent. Rate : 077 BPM Atrial Rate : 077 BPM P-R Int : 126 ms QRS Dur : 086 ms QT Int : 404 ms P-R-T Axes : 057 061 060 degrees QTc Int : 457 ms Normal sinus rhythm. Normal ECG When compared with ECG of 27-FEB-2019 14:05, (Unconfirmed) Vent. rate has decreased BY 44 BPM Non-specific change in ST segment in Inferior leads Nonspecific T wave abnormality no longer evident in Inferior leads Nonspecific T wave abnormality no longer evident in Lateral leads Confirmed by Torsten HUERTA, Babar ([id number]) on 03/03/2019 8:28:42 AM
[2019-03-02] MEDS: VANCOMYCIN 2,000 MG in NS 500 ML IV SCH (07:50)
[2019-03-02] MEDS: KLOR-CON PO SCH ×2 (07:50→12:00)
[2019-03-02] MEDS ORDERED: ATIVAN IV PRN (08:59)
--- NOTE | 2019-03-02 09:41 | PROGRESS NOTE ---
DATE: 03/02/2019 INTERVAL HISTORY: No acute events overnight. At nighttime he was getting agitated and requiring intravenous ziprasidone as well as phenobarbital. In the morning time he is sleepy. Yesterday I was not able to reach out to his mother and her voicemail was full. SUBJECTIVE: He is not opening his eyes, but he states that he never really liked ziprasidone and never started taking it. He states he has been taking 1 mg of clonazepam at nighttime. However, he is sleepy and not a lot of information regarding his home medication regimen could be obtained. OBJECTIVE: Vital Signs: He has been afebrile with temperature of 98.3 degrees, except episode of 99.9 yesterday. Pulse of 76, respiratory rate 30, blood pressure 130/91, saturating 97% room air. General: Not in acute distress. HEENT: Oral cavity is moist. Lungs: Air entry bilaterally equal. No wheeze, rhonchi, crackles. Cardiovascular: S1, S2 normal. No murmur or gallop. Abdomen: Soft, nontender. Extremities: He is in four-point restraints. There are some blisters on bilateral wrist, which could be related to an injury to the wrist when he was trying to pull the restraints. LABORATORY STUDIES: Input and output suggests he is positive 3 L since admission. Labs suggestive of normal CBC mostly. Resolution of hypokalemia. He is still getting some potassium. He also has decreasing creatine kinase and stable liver function tests. Microbiology: No positive data. No new imaging. ASSESSMENT AND PLAN: 1. Acute encephalopathy due to use of recreational substances including benzodiazepines and amphetamines. He could be withdrawing from those substances as well. I will stop intravenous lorazepam drip today and start him on oral clonazepam as well as needed intravenous lorazepam. I will start him on his propranolol and ziprasidone, which should be his home medication as per the previous discharge summary until I get further information. 2. Suspected right forearm possible cellulitis. Currently, his arm does not have any erythema or tenderness. I will stop intravenous vancomycin and continue intravenous Unasyn. Blood culture did not have any growth. 3. Polysubstance abuse. He will eventually need a lot of counseling and family support. I will keep his mother in home. Currently, he is encephalopathic. DISPOSITION: Considering his agitation and need for intravenous lorazepam drip, I will monitor him in the ICU. Plan of care discussed with the nursing team. All of questions have been answered. cc: aBlwinder Butler MD
[2019-03-02] MEDS: NICODERM PATCH TD SCH (09:47)
[2019-03-02] MEDS: INDERAL PO SCH ×2 (09:47→20:26)
[2019-03-02] MEDS: GEODON PO SCH ×2 (09:48→20:26)
--- NOTE | 2019-03-02 12:38 | Extremity Venous Study ---
PROCEDURE NAME: Venous U/S Right Arm - 02/27/2019 REQUESTING PROVIDER: LAINEY Parker. BUNDLE HELPER: Jasper. INDICATIONS: 1. Right upper extremity swelling. 2. History of IV drug abuse. EQUIPMENT: [employer] Vivid E9 ultrasound system with a 9 L-D transducer. FINDINGS: Images of the right upper extremity venous system with a comparison shot to the left subclavian vein were obtained in both sagittal and transverse planes. Doppler was used to evaluate the veins for spontaneity, phasicity, respiratory excursion, and digital augmentation. RESULTS: Normal venous compression. Normal venous flow. No obvious superficial or deep venous thrombosis noted. INTERPRETATION: Essentially normal right upper extremity venous study. cc: MD Kim Villagomez CRNP
[2019-03-02] MEDS: M V I IV SCH (13:45)
[2019-03-02] MEDS: D5W IV SCH (13:45)
[2019-03-02] MEDS: FOLIC ACID IV SCH (13:45)
[2019-03-02] MEDS: THIAMINE IV SCH (13:45)
[2019-03-02] MEDS: TYLENOL PO PRN (15:36)
[2019-03-02] MEDS: ATIVAN IV PRN ×2 (15:37→20:26)
[2019-03-02] MEDS: LIDODERM TOP SCH (17:06)
[2019-03-02] MEDS: KLONOPIN PO SCH (20:26)
[2019-03-03] MEDS: STERILE WATER INJ. INJ PRN (00:28)
[2019-03-03] MEDS: GEODON IM PRN (00:28)
[2019-03-03] MEDS: ATIVAN IV PRN ×4 (03:00→21:30)
[2019-03-03] MEDS: UNASYN 3 GM/NS 3 GM/100 ML IVPB IV SCH ×4 (05:24→23:01)
[2019-03-03] MEDS: PHENOBARBITAL IV PRN ×2 (05:28→23:14)
--- NOTE | 2019-03-03 09:07 | PROGRESS NOTE ---
DATE: 03/03/2019 INTERVAL HISTORY: He was a little more interactive during daytime yesterday and his diet was advanced to mechanical soft. However, later on, he had started becoming again very, very agitated. He started requiring multiple doses of phenobarbital, lorazepam, and Geodon. He was hemodynamically otherwise stable overnight. His vitals were okay. He is still in restraints. VITAL SIGNS: Temperature 97.8 degrees, pulse 70, respiratory rate 16, blood pressure 130/100, saturating 94% on room air. SUBJECTIVE: Mr. Lopez states he wanted to sleep and he wanted some rest. However, he followed simple commands to allow examination. He could tell me his name, date of , and current date. PHYSICAL EXAMINATION: Oral cavity is moist. Air entry is bilaterally equal. No wheeze, rhonchi, or crackles. S1, S2 normal. No murmur, rub, or gallop. Abdomen is soft, nontender. No lower extremity edema. He has urine catheter. He is in four-point restraints. LABS: No CBC or BMP today. No microbiological data. No new imaging. Yesterday, electrocardiogram performed had a QTc of 457, which I will monitor periodically. ASSESSMENT AND PLAN: 1. Acute encephalopathy due to suspected use of recreational substances including amphetamines and opiates, though he is listed to be taking Adderall at home. He could also be withdrawing from use of these substances. He initially required intravenous lorazepam drip. I will continue him on oral clonazepam, oral ziprasidone, as needed intravenous lorazepam, and as needed intravenous phenobarbital. The details of his home medications are not clear at the moment. However, according to discharge summary in September, he was supposed to be taking Geodon, Adderall, and propranolol, which I will continue at the moment except Adderall which I will add later on. 2. History of bipolar disorder, medication noncompliance, generalized anxiety disorder, insomnia, and history of drug abuse. Continue management as per above. 3. Right forearm cellulitis on presentation. Currently, his arm does not have any erythema or tenderness, and his WBC count has decreased. Today is day 5 of antibiotics and I will stop it after tonight's dose. 4. Disposition. Considering he is needing multiple doses of intravenous sedative antipsychotic medications, I will monitor him in the intensive care unit. I called patient's mother, on , and informed her about the patient's condition. She requested if the patient should go to a [place] [facility] [place] or rehab-like facility such as [facility]. I discussed with her that the patient needs to be medically stable and eventually, he may need evaluation for [facility] and from there, he may eventually need other long-term facility. I answered all of her questions. She also informed me that Mr. Lopez has been on Adderall since he was 15 years of age for ADHD. More than 30 minutes of critical time was spent taking care of this patient. ADDENDUM: Mr. Lopez was requesting to be started on clonazepam and hydroxyzine to the nurse. He was also requesting to be started back on his home Adderall. I confirmed with his mother and he has been on his Adderall since he was 15 years old for ADHD. So, I have started him back on that. I also have him on oral Ziprasidone, clonazepam and propranolol after referring to previous discharge summary. I will hold off on adding any other sedative/anti- psychotic medications for now. I will observe for at least 24 hours in ICU. cc: Balwinder Butler MD MTDD
[2019-03-03] MEDS: GEODON PO SCH ×2 (09:08→21:21)
[2019-03-03] MEDS: LIDODERM TOP SCH (09:08)
[2019-03-03] MEDS: NICODERM PATCH TD SCH (09:08)
[2019-03-03] MEDS: INDERAL PO SCH ×2 (09:08→20:46)
[2019-03-03] MEDS ORDERED: PRILOSEC PO ONE (12:52)
[2019-03-03] MEDS: ADDERALL PO SCH (16:19)
[2019-03-03] MEDS: KLONOPIN PO SCH (20:46)
[2019-03-04] MEDS: STERILE WATER INJ. INJ PRN (00:09)
[2019-03-04] MEDS: GEODON IM PRN (00:09)
--- NOTE | 2019-03-04 00:16 | PROVIDER PROGRESS NOTE ---
Progress Note contacted by Dr Ann. Pt is combative in ICU. He has drug abuse, schizophrenia. He is having auditory hallucinations, is threatening to kill his mother. Due to psychosis, homicidal ideations, agree with 2 physician hold.
[2019-03-04] MEDS: ATIVAN IV PRN ×4 (01:47→21:55)
[2019-03-04] MEDS: UNASYN 3 GM/NS 3 GM/100 ML IVPB IV SCH ×3 (04:43→17:08)
[2019-03-04] MEDS: PRILOSEC PO SCH (06:23)
[2019-03-04 08:20] LABS: BASO# 0.02 X1000 (0.0-0.2); BASO% 0.3 % (0.0-0.8); EOS# 0.18 X1000 (0.0-0.7); HEMOGLOBIN 12.9 g/dL (14.0-18.0); LYMPH# 1.68 X1000 (1.2-3.4); LYMPH% 28.1 % (20.5-51.1); MCH 28.7 PG (27-31); MCHC 33.1 g/dL (33-37); MCV 86.9 FL (81-99); MONO# 1.02 X1000 (0.11-0.59); MONO% 17.1 % (1.7-9.3); MPV 9.3 FL (7.4-10.4); NEUT# 3.08 X1000 (1.4-6.5); NEUT% 51.5 % (42.2-75.2); PLT 216 X1000 (130-400); RBC 4.49 XMIL (4.7-6.1); RDW 15.1 % (11.5-14.5); WBC 5.98 X1000 (4.8-10.8)
[2019-03-04 08:44] LABS: AGAP 11; BUN 6 mg/dL (8-22); CALCIUM 9.3 mg/dL (8.8-10.2); CHLORIDE 101 mmol/L (98-107); COSMO 275; CREATININE 0.6 mg/dL (0.7-1.2); ESTIMATED GFR > 60; GLUCOSE 91 mg/dL (70-104); POTASSIUM 3.5 mmol/L (3.5-5.1); SODIUM 139 mmol/L (136-145); TCO2 27 mmol/L (25-35)
[2019-03-04] MEDS: GEODON PO SCH ×2 (09:02→21:35)
[2019-03-04] MEDS: NICODERM PATCH TD SCH (09:02)
[2019-03-04] MEDS: LIDODERM TOP SCH (09:02)
[2019-03-04] MEDS: INDERAL PO SCH ×2 (09:02→20:06)
[2019-03-04] MEDS: ADDERALL PO SCH (09:02)
[2019-03-04] MEDS: PHENOBARBITAL IV PRN ×2 (11:02→23:13)
[2019-03-04] MEDS: KLONOPIN PO SCH (20:06)
[2019-03-04] MEDS ORDERED: COREG PO ONE (20:58)
[2019-03-04] MEDS: COREG PO SCH (21:31)
[2019-03-04] MEDS: TYLENOL PO PRN (23:19)
[2019-03-05] MEDS: ATIVAN IV PRN ×5 (04:01→20:59)
--- NOTE | 2019-03-05 04:03 | PROGRESS NOTE ---
DATE: 03/04/2019 SUBJECTIVE: The patient is awake and alert. He did have visual hallucinations last night documented by the nursing staff. OBJECTIVE: Vital Signs: Temperature 99 degrees, blood pressure 137/96, heart rate 82, respirations 18, O2 saturation is 98% on room air. General: This is a young male lying in bed in no acute distress. Heart: S1, S2 normal. Tachycardic. Lungs: Clear to auscultation bilaterally. Abdomen: Positive bowel sounds. Soft, nontender, nondistended. Extremities: No edema, no cyanosis, no calf tenderness. Neurologic: The patient is alert and oriented. LABORATORY DATA: White blood cell count is 5.9, hemoglobin 12, hematocrit 39, platelets 216,000. Sodium 139, potassium 3.5, chloride 101, CO2 is 27, BUN 6, creatinine 0.6, glucose 103. ASSESSMENT AND PLAN: 1. Toxic metabolic encephalopathy, improved. The patient is on multiple medications to control his behavior. We will continue to monitor closely. 2. Possible schizophrenia and bipolar disorder. The patient will require inpatient psychiatric placement. The patient's family brought in paperwork indicating that the patient has a court ordered hold. Print Line Inspector will be notified to assist with inpatient psychiatric placement. 3. Right forearm cellulitis, resolved. 4. Hypertension. We will adjust the patient's antihypertensive regimen. 5. Disposition. The patient will require inpatient psychiatric care. We will await placement. cc: Trena Castaneda MD
[2019-03-05] MEDS: PHENOBARBITAL IV PRN ×3 (06:45→20:37)
[2019-03-05] MEDS: PRILOSEC PO SCH (06:45)
[2019-03-05] MEDS: NICODERM PATCH TD SCH (08:53)
[2019-03-05] MEDS: LIDODERM TOP SCH ×2 (08:54→09:12)
[2019-03-05] MEDS: NORVASC PO SCH (08:54)
[2019-03-05] MEDS: LOVENOX SUBQ SCH ×2 (08:54→09:09)
[2019-03-05] MEDS: COREG PO SCH ×2 (08:54→20:37)
[2019-03-05] MEDS: GEODON PO SCH ×4 (08:54→20:59)
[2019-03-05] MEDS: ADDERALL PO SCH (08:54)
[2019-03-05] MEDS: KLONOPIN PO SCH (20:37)
[2019-03-05] MEDS: TYLENOL PO PRN (20:50)
[2019-03-05] MEDS: GEODON IM PRN (21:08)
[2019-03-05] MEDS: STERILE WATER INJ. INJ PRN (21:09)
--- NOTE | 2019-03-05 21:09 | PROGRESS NOTE ---
DATE: 03/05/2019 SUBJECTIVE: The patient is sitting up eating breakfast. He states that he is not interested in going to [facility]. He is currently on a court hold. OBJECTIVE: Vital Signs: Temperature 98.6 degrees, blood pressure 122/78, heart rate 83, respirations 16, O2 saturations 100% on room air. General: This is a young male lying in bed in no acute distress. Heart: S1, S2 normal. Regular rate and rhythm. Lungs: Clear to auscultation bilaterally. Abdomen: Positive bowel sounds. Soft, nontender, nondistended. Extremities: No edema. No cyanosis. Neurologic: The patient is alert and oriented x3. LABS: None. ASSESSMENT AND PLAN: 1. Bipolar disorder with psychosis. The patient currently has a court hold and we are awaiting inpatient psychiatric placement. We will continue on the current psychiatric medications. 2. Right forearm cellulitis. Resolved. 3. Hypertension. Controlled. Continue on the current antihypertensive regimen. 4. Disposition. The patient is medically stable for transfer to an inpatient psychiatric facility once a facility has been found. I updated the patient's mother about the patient's clinical status and plan of care. cc: Trena Castaneda MD MTDD
[2019-03-06] MEDS: ATIVAN IV PRN (04:28)
[2019-03-06 06:50] LABS: BASO# 0.03 X1000 (0.0-0.2); BASO% 0.6 % (0.0-0.8); EOS# 0.13 X1000 (0.0-0.7); EOS% 2.4 % (0.0-10.0); HEMATOCRIT 41.1 % (42.0-52.0); HEMOGLOBIN 13.3 g/dL (14.0-18.0); IMM GRAN# 0.04 X1000 (0.0-0.04); IMM GRAN% 0.7 % (0.0-0.5); LYMPH# 1.66 X1000 (1.2-3.4); LYMPH% 30.9 % (20.5-51.1); MCHC 32.4 g/dL (33-37); MCV 86.5 FL (81-99); MONO# 0.78 X1000 (0.11-0.59); MONO% 14.5 % (1.7-9.3); MPV 9.2 FL (7.4-10.4); NEUT# 2.74 X1000 (1.4-6.5); NEUT% 50.9 % (42.2-75.2); PLT 302 X1000 (130-400); RBC 4.75 XMIL (4.7-6.1); RDW 15.4 % (11.5-14.5); WBC 5.38 X1000 (4.8-10.8)
[2019-03-06] MEDS: PRILOSEC PO SCH (06:50)
[2019-03-06 06:58] LABS: AGAP 14; BUN 10 mg/dL (8-22); CALCIUM 8.9 mg/dL (8.8-10.2); CHLORIDE 101 mmol/L (98-107); COSMO 275; CREATININE 0.7 mg/dL (0.7-1.2); ESTIMATED GFR > 60; GLUCOSE 97 mg/dL (70-104); MAGNESIUM 2.1 mg/dL (1.5-2.7); POTASSIUM 3.8 mmol/L (3.5-5.1); SODIUM 138 mmol/L (136-145); TCO2 23 mmol/L (25-35)
[2019-03-06] MEDS: COREG PO SCH (08:08)
[2019-03-06] MEDS: NICODERM PATCH TD SCH (08:08)
[2019-03-06] MEDS: NORVASC PO SCH (08:08)
[2019-03-06] MEDS: LIDODERM TOP SCH (08:11)
[2019-03-06] MEDS: GEODON PO SCH (08:11)
[2019-03-06] MEDS: LOVENOX SUBQ SCH (08:12)
[2019-03-06] MEDS: ADDERALL PO SCH ×2 (09:07→13:57)
[2019-03-06] MEDS: ATIVAN PO PRN ×2 (09:43→13:58)
--- NOTE | 2019-03-06 10:14 | PROGRESS NOTE ---
DATE: 03/06/2019 SUBJECTIVE: The patient is agitated this morning. He states that he does not want to remain in the hospital and wants to be discharged. OBJECTIVE: Vital Signs: Temperature 97.8 degrees, blood pressure 102/51, heart rate 79 respirations 17, O2 saturations 98% on room air. General: This is a young male lying in bed in no acute distress. Heart: S1, S2 normal. Regular rate and rhythm. Lungs: Clear to auscultation bilaterally. No wheezing. No rales. No rhonchi. Abdomen: Positive bowel sounds. Soft, nontender, nondistended. Extremities: No edema, no cyanosis, no calf tenderness. Neurologic: The patient is alert and oriented x3. LABS: White blood cell count 5.3, hemoglobin 13, hematocrit 41 platelets 302. Sodium 138, potassium 3.8, chloride 101, CO2 23. BUN 10, creatinine 0.7, glucose 97. ASSESSMENT AND PLAN: 1. Bipolar disorder with psychosis. Continue on Geodon. We are currently waiting on inpatient psychiatric placement. The patient currently has a court ordered hold in place. 2. Alcohol dependence. Aware. The patient is on as-needed Ativan. 3. Right forearm cellulitis. Resolved. 4. Hypertension. Stable. 5. Disposition: The patient is medically stable for transfer to an inpatient psychiatric facility. Manager Commercial Sales is working on inpatient psychiatric placement for the patient. The patient currently has a court ordered hold in place. cc: Trena Castaneda MD MTDD
[2019-03-06 15:55] VITALS: BP 117/95
--- NOTE | 2019-03-16 20:31 | DISCHARGE SUMMARY ---
ADMISSION DATE: 02/27/2019 DISCHARGE DATE: 03/06/2019 FINAL DISCHARGE DIAGNOSES: 1. Bipolar disorder with psychosis. 2. Alcohol dependence. 3. Right forearm cellulitis. 4. Hypertension. HOSPITAL COURSE: Mr. Lopez is a 38-year-old male with a history of bipolar disorder with psychotic features who presented to the ER with altered mental status. The patient also has history of polysubstance abuse. On admission the patient was noted to be confused and was noted to have a right forearm cellulitis. The patient was admitted to the ICU. The patient was initially treated with an Ativan drip due to his severe agitation and due to concern of possible withdrawal. The patient was treated with IV Unasyn and vancomycin as well as IV fluids for this cellulitis and over the course of the hospitalization it was determined that the patient was exhibiting psychotic features. This was discussed at length with the patient's family and the patient when he was coherent. Ultimately it was decided that the patient needed inpatient psychiatric treatment. Since the patient would not agree the patient's parents petitioned the court for a court hold. Hot Plate Press Operator was consulted to assist with inpatient psych placement. The patient was assessed by [facility] who ultimately accepted the patient for further treatment. The patient was ultimately discharged to [facility] on 03/06/2019. cc: MD ARIANNA Villatoro
== END 2019-03-06 17:45 | DRG 896 ==
LOC: SUPCPDRO → ED 11:23 → EDIPHOLD 15:34 → SUATTDRO 15:34 → ICU 19:37
PROVIDERS: ATTEND Internal Medicine